=== PATIENT | female | born 1970 | race Asian ===

== ENCOUNTER 2016-09-03 06:03 | Day surgery (SDC) | payer OTHER ==
[~2016-09-03] VITALS: Ht 162.6 cm; Wt 57.2 kg
[2016-09-03] MEDS ORDERED: MORPHINE SULFATE 4 MG/ML SYR IM/IVP PRN (09:45)
[2016-09-03] MEDS ORDERED: ACETAMINOPHEN/CODEINE 300/30MG 1 TAB PO PRN (09:45)
[2016-09-03] MEDS ORDERED: ONDANSETRON 4 MG/2 ML VIAL IVP PRN ×2 (09:45→10:55)
[2016-09-03] MEDS ORDERED: IBUPROFEN 800 MG TAB PO PRN (09:45)
[2016-09-03] MEDS ORDERED: diphenhydrAMINE 50 MG/ML VIAL IVP PRN (10:55)
[2016-09-03] MEDS ORDERED: LACTATED RINGERS 1,000 ML IV SCH (10:55)
[2016-09-03] MEDS ORDERED: MEPERIDINE 25 MG/ML SYR IVP PRN (10:55)
[2016-09-03] MEDS ORDERED: HYDROmorphone 1 MG/ML AMP IVP PRN (10:55)
[2016-09-03] MEDS ORDERED: MEPERIDINE 50 MG/ML SYR ONE (10:58)
[2016-09-03] MEDS ORDERED: fentaNYL 0.05 MG/ML VIAL ONE (10:58)
[2016-09-03] MEDS ORDERED: MIDAZOLAM 2 MG/2 ML VIAL ONE (10:58)
== END 2016-09-03 12:25 | disposition home or self-care (01) ==
LOC: MOR 06:03 → MMU 06:04 → MOR 12:25
PROVIDERS: ATTEND Obstetrics & Gynecology
DX: N87.1 Moderate cervical dysplasia (principal); Z98.890 Other specified postprocedural states
CPT/HCPCS: 57522; J2175; J2250; J3010; J7030